=== PATIENT | female | born 1975 | race Caucasian/White ===

== ENCOUNTER 2016-10-30 08:30 | Emergency (ER) | payer MEDICAID, OTHER ==
[~2016-10-30] VITALS: Ht 172.7 cm; Wt 86.2 kg
[2016-10-30 09:20] VITALS: BP 140/96
== END 2016-10-30 09:50 | disposition home or self-care (01) ==
LOC: ER 08:35
DX: S46.211A Strain of muscle, fascia and tendon of other parts of biceps, right arm, initial encounter (principal); X50.0XXA Overexertion from strenuous movement or load, initial encounter; Y93.89 Activity, other specified; Y99.8 Other external cause status; Y92.89 Other specified places as the place of occurrence of the external cause

== ENCOUNTER 2021-02-16 09:04 | Emergency (ER) | payer BC, MEDICAID ==
[~2021-02-16] VITALS: Ht 170.2 cm; Wt 95.3 kg
[2021-02-16 09:15] VITALS: BP 115/92
[2021-02-16 10:01] LABS: Urine Bacteria NONE SEEN /hpf (None Seen); Urine Blood Negative /uL (Negative); Urine Specific Gravity 1.025 (1.001-1.035); Urine WBC 5 /hpf (0 - 5)
[2021-02-16 10:23] LABS: Basophils # (auto) 0 10 ^3/uL (0-0.2); Basophils % (auto) 0.4 % (0.0-2.0); Eosinophils # (auto) 0 10 ^3/uL (0-0.8); Eosinophils % (auto) 0.4 % (0.0-7.0); Hematocrit 47.2 % (36.0-46.0); Hemoglobin 16.2 g/dL (12.2-16.2); Mean Corpuscular Hemoglobin 32.2 pg (28.0-32.0); Mean Corpuscular Hgb Conc. 34.4 g/dL (32.0-36.0); Mean Corpuscular Volume 93.8 fL (80.0-100.0); Monocytes # (auto) 0.2 10 ^3/uL (0-1.3); Monocytes % (auto) 4.8 % (0.0-12.0); Neutrophils # (auto) 2.4 10 ^3/uL (1.6-8.6); Neutrophils % (auto) 67.4 % (37.0-80.0); Nucleated Red Blood Cells % 0.2 %; Red Blood Cells 5.03 10^6/uL (4.0-5.20); Red Cell Distribution Width 12.7 % (11.8-14.3); White Blood Cell 3.5 10^3/uL (4.4-10.8)
[2021-02-16 10:31] LABS: Albumin 3.7 g/dL (3.4-5.0); Calcium 8.6 mg/dL (8.5-10.1); Potassium 4.4 mmol/L (3.5-5.1)
[2021-02-16 10:35] LABS: BUN/Creatinine Ratio 10.3; Bilirubin, Total 0.4 mg/dL (0.2-1.0); Total Protein 7.6 g/dL (6.4-8.2)
== END 2021-02-16 13:27 | disposition left against medical advice (07) ==
LOC: ER 09:04
DX: J18.9 Pneumonia, unspecified organism (principal); Z53.29 Procedure and treatment not carried out because of patient's decision for other reasons
CPT/HCPCS: 36415; 74176; 80053; 81001; 85025

== ENCOUNTER 2024-05-04 07:23 | Emergency (ER) | payer BC, MEDICAID ==
[~2024-05-04] VITALS: Ht 170.2 cm; Wt 100.0 kg
--- NOTE | 2024-05-04 07:36 | ED.PDOC ---
GI ASSESSMENT HPI Comments 48Y F presents to ED via EMS for chief complaint left-sided abd pain x this morning. Pt describes abd pain as sharp and it is non-radiating. Pt denies chest pain, SOB, urinary symptoms, and n/v/d. LBM was this morning. Pt states pain is not related to menstrual cycle. Per EMS, BS 154 on scene. EMS states there were no episodes of syncope and no masses were felt on assessment. Pt states she drinks approximately one pint of alcohol daily and the last drink was 2-3days ago. No other symptoms reported. Chief Complaint: Abdominal Pain Time Seen by MD: 07:26 Primary Care Provider: NONE Reviewed Notes: Nurses Notes, Data Keyer Notes, Medications, Allergies Allergies: Coded Allergies: NO KNOWN ALLERGIES (Unverified , 10/21/13) Information Source: Patient, Relative (Child), Emergency Med Personnel Mode of Arrival: EMS Brought in by: EMS Timing: Hours Duration: Since onset Prehospital treatment: Accucheck Quality: Sharp Vomitus: None Stool: Normal Severity: Mild Recent: None Recent Hx of: None Pain Location: LUQ, LLQ Modifying Factors: Nothing Associated sign and symptoms: Abdominal Pain Past Medical History PAST MEDICAL HISTORY: Kidney Stones Surgical History: Denies all surgeries BLUEPRINTER History: No Pertinent BLUEPRINTER History Family History Family History: Reviewed,noncontributory to illness Social History Smoker: Non-Smoker Alcohol: Heavy Drugs: Denies Drug Use Lives In: Home Constitutional: denies: chills, diaphoresis, fatigue, fever, malaise, sweats, weakness, others EENTM: denies: blurred vision, double vision, ear bleeding, ear discharge, ear drainage, ear pain, ear ringing, eye pain, eye redness, hearing loss, mouth pain, mouth swelling, nasal discharge, nose bleeding, nose congestion, nose pain, photophobia, tearing, throat pain, throat swelling, voice changes, others Respiratory: denies: cough, hemoptysis, orthopnea, SOB at rest, shortness of breath, SOB with excertion, stridor, wheezing, others Cardiovascular: denies: chest pain, dizzy spells, diaphoresis, Dyspnea on exertion, edema, irregular heart beat, left arm pain, lightheadedness, palpitations, PND, syncope, others Gastrointestinal: reports: abdominal pain; denies: abdomen distended, blood streaked bowels, constipated, diarrhea, dysphagia, difficulty swallowing, hematemesis, melena, nausea, poor appetite, poor fluid intake, rectal bleeding, rectal pain, vomiting, others Genitourinary: denies: abnormal vagina bleeding, burning, dyspareunia, dysuria, flank pain, frequency, hematuria, incontinence, pain, , vagina discharge, urgency, others Neurological: denies: dizziness, fainting, headache, left sided numbness, left sided weakness, numbness, paresthesia, pre-existing deficit, right sided numbness, right sided weakness, seizure, speech problems, tingling, tremors, weakness, others Musculoskeletal: denies: back pain, gout, joint pain, joint swelling, muscle pain, muscle stiffness, neck pain, others Integumetry: denies: bruises, change in color, change in hair/nails, dryness, laceration, lesions, lumps, rash, wounds, others Allergic/Immunocompromised: denies: Difficulty Healing, Frequent Infections, Hives, Itching, others Hematologic/Lymphatic: denies: anemia, blood clots, easy bleeding, easy bruising, swollen glands, others Endocrine: denies: excessive hunger, excessive sweating, excessive thirst, excessive urination, flushing, intolerance to cold, intolerance to heat, unexplained weight gain, unexplained weight loss, others Psychiatric: denies: anxiety, bipolar disorder, depression, hopeless, panic disorder, schizophrenia, sleepless, suicidal, others All Other Systems: Reviewed and Negative Physical Exam General Appearance: No Apparent Distress, Normal HEENT: Normal ENT Inspection, Pharynx Normal, TMs Normal Neck: Full Range of Motion, Non-Tender, Normal, Normal Inspection Respiratory: Chest Non-Tender, Lungs Clear, No Accessory Muscle Use, No Respiratory Distress, Normal Breath Sounds Cardiovascular: No Edema, No JVD, No Murmur, No Gallop, Normal Peripheral Pulses, Regular Rate/Rhythm Breast Exam: Deferred Gastrointestinal: LLQ, LUQ, No Organomegaly, No Pulsatile Mass, Normal Bowel Sounds, Soft, Tenderness Genitalia: Deferred Pelvic: Deferred Rectal: Deferred Extremities: No calf tenderness, Normal capillary refill, Normal inspection, Normal range of motion, Non-tender, No pedal edema Musculoskeletal : Apperance: Normal Neurologic: Alert, bean weigher II-XII nml as Tested, No Motor Deficits, Normal Affect, Normal Mood, No Sensory Deficits Cerebellar Function: Normal Reflexes: Normal Skin: Dry, Normal Color, Warm Lymphatic: No Adenopathy Was a procedure done? Was a procedure done?: No GI differential Dx Differential Diagnosis: AAA, Appendicitis, Complete , Incomplete , Inevitable , Missed , Threatened , Abruptio placentae, Angina/[place], Aortic dissection, Bowel Obstruction, Cholangitis, Cholecystitis, Constipation, Diverticular disease, Dysmenorrhea, Ectopic , Esophageal rupture, Esophagitis, Gastritis/PUD, Gastroenteritis, GI hemorrhage, Hernia, Hepatitis, Inflammatory BD, Ischemic Bowel, Ovarian cyst/torsion, Pancreatitis, PID, Porphyria, Trauma intraabdominal, Urinary Obstruction, UTI, Urolithiasis, Dehydration, Diabetes/ DKA, Drug toxicity, Electrolyte Imbalance, Food Poisoning, , Bacterial, Parasitic, Viral, Hypovolemia, Impaction, Malnutrition, Renal Failure, Anemia, Esophageal Varicies, Stress Ulcer, Kidney Stone X-Ray, Labs, Meds, VS Vital Signs Date Time Temp Pulse Resp B/P (MAP) Pulse Ox O2 Delivery O2 Flow Rate FiO2 05/04/24 09:28 71 16 98 Room Air* 0 21 05/04/24 09:28 97.5 71 16 101/72 (82) 98 97.5 05/04/24 07:35 55 05/04/24 07:26 98.8 55 20 92/65 (74) 95 Lab Test 05/04/24 08:06 05/04/24 07:50 Range/Units Urine Color Dark yellow Yellow Urine Clarity Ex.turbid Clear Urine pH 6.0 5.0-9.0 Urine Specific Howard 1.030 1.001-1.035 Urine Protein 1+ H Negative Urine Ketones Negative Negative Urine Blood Negative Negative /uL Urine Nitrite Negative Negative Urine Bilirubin Negative Negative Urine Urobilinogen 8 H Negative mg/dL Urine Leukocyte Esterase Trace Negative /uL Urine RBC 10 0 - 4 /hpf Urine WBC 28 0 - 5 /hpf Urine Squamous Epithelial Cells Many <5 /hpf Urine Bacteria None seen None Seen /hpf Urine Hyaline Casts Few 0 - 2 /lpf Urine Mucus Few None Seen Urine Glucose Normal Normal mg/dL White Blood Count 7.2 4.4-10.8 10^3/uL Red Blood Count 4.53 4.0-5.20 10^6/uL Hemoglobin 14.7 12.2-16.2 g/dL Hematocrit 43.4 36.0-46.0 % Mean Corpuscular Volume 95.8 80.0-100.0 fL Mean Corpuscular Hemoglobin 32.6 H 28.0-32.0 pg Mean Corpuscular Hemoglobin Concent 34.0 32.0-36.0 g/dL Red Cell Distribution Width 13.1 11.8-14.3 % Platelet Count 282 140-450 10^3/uL Mean Platelet Volume 8.9 6.9-10.8 fL Neutrophils (%) (Auto) 64.8 37.0-80.0 % Lymphocytes (%) (Auto) 26.0 10.0-50.0 % Monocytes (%) (Auto) 5.2 0.0-12.0 % Eosinophils (%) (Auto) 3.4 0.0-7.0 % Basophils (%) (Auto) 0.6 0.0-2.0 % Neutrophils # (Auto) 4.6 1.6-8.6 10 ^3/uL Lymphocytes # (Auto) 1.9 0.4-5.4 10 ^3/uL Monocytes # (Auto) 0.4 0-1.3 10 ^3/uL Eosinophils # (Auto) 0.2 0-0.8 10 ^3/uL Basophils # (Auto) 0 0-0.2 10 ^3/uL Nucleated Red Blood Cells 0.1 % Sodium Level 137 136-145 mmol/L Potassium Level 4.1 3.5-5.1 mmol/L Chloride Level 107 98-107 mmol/L Carbon Dioxide Level 21 20-31 mmol/L Anion Gap 9 5-15 Blood Urea Nitrogen 16 9-23 mg/dL Creatinine 1.02 0.550-1.02 mg/dL Glomerular Filtration Rate Calc 67 >90 mL/min BUN/Creatinine Ratio 15.7 10.0-20.0 Serum Glucose 141 H 74-106 mg/dL Calcium Level 10.1 8.7-10.4 mg/dL Beta HCG, Quantitative 0.6 L 1.5-4.2 mIU/mL [facility] [id number] [place] [id number] Ph: [phone] DIAGNOSTIC IMAGING Diagnostic Imaging Report : [id number] Signed PATIENT: VISHNU HARGROVE ACCT: [id number] UNIT: [id number] : 1975 LOC: ER ROOM / BED: / AGE / SEX: 48 / F ADM STATUS: REG ER SERVICE 8 ORDERING PHYSICIAN: JONATHAN MURPHY MD PROCEDURE(s): ABPL - CT AB PEL WO CON-NO ORAL OR IV REASON: left abdominal pain ORDER NUMBER(s): [id number], ACCESSION NUMBER(s): [id number] Procedure: CT CT AB PEL WO CON-NO ORAL OR IV 05/04/2024 09:03 AM Indication: left abdominal pain Comparison Study: None available at time of dictation. Technique: Axial images were obtained and reformatted in coronal and sagittal planes. All CT scans at this medical facility are performed using dose modulation techniques as appropriate to a performed exam including the following: Automated exposure control was utilized; adjustment of the MA and/or KV according to patient size; and use of iterative reconstruction technique. CT Dose: CTDI volume is 25 mGy. Dose-length product is 1528 mGy*cm FINDINGS: Lower Chest: Bibasilar subsegmental atelectasis is noted. Hepatobiliary: Unremarkable. Spleen: Unremarkable. Pancreas: Unremarkable. Adrenal Glands: Unremarkable. tract: The kidneys are normal in size bilaterally without hydronephrosis or nephrolithiasis. The urinary bladder is unremarkable. GI tract: The stomach is grossly normal in appearance. No evidence of small bowel obstruction. Circumferential mural thickening of the ascending colon adjacent fat stranding compatible with colitis. There is sigmoid diverticulosis without diverticulitis. The appendix is normal. Lymphatics: No mesenteric, retroperitoneal or periportal lymphadenopathy. Vasculature: The abdominal aorta is normal in in caliber. Pelvic Organs: Unremarkable Bones/soft tissues: No acute abnormality. Degenerative changes of the lumbar spine noted. Small fat-containing umbilical hernia. Other: None. IMPRESSION: 1. Descending colitis. 2. Sigmoid diverticulosis without diverticulitis. ATED BY: CATRACHITA BOND MD DICTATED DATE/TIME: 05/04/24946 SIGNED BY: CATRACHITA BOND MD SIGNED DATE/TIME: 05/04/24946 CC: Time of 1ST Reevaluation: 07:56 Reevaluation 1ST: Unchanged Time of 2ND Reevaluation: 10:08 Reevaluation 2ND: Resolved Patient Education/Counseling: Diagnosis, Treatment, Prognosis, Need For Follow Up Family Education/Counseling: Diagnosis, Treatment, Prognosis, Need For Follow Up Additional Information I reviewed the following notes from patient's past medical encounters: [facility] ER 02/16/2021, 10/30/2016, 10/21/2013 The following tests were ordered, and results were reviewed by me: CBC, BMP, beta hcg quantitative, UA, CT abd/pelvis WO contrast Additional Information was gathered from interviewing the following independent historians: EMS and family I reviewed and agreed with the following test results read by other providers: CT abd/pelvis WO contrast I discussed treatment and results with medical personnel and family. pt reports she had a BM and is much better. i offered to admit her for hydration, and pain control for the colitis, but she declined Departure 1 Departure Time of Disposition: 10:09 Impression: Primary Impression: Abdominal pain Qualified Codes: R10.32 - Left lower quadrant pain Additional Impression: Colitis Disposition: 01 HOME / SELF CARE / HOMELESS Condition: Good e-Prescriptions Amoxicillin & Pot Clavulanate (AUGMENTIN TABLET) 875 Mg Tb 875 MG PO BID for 10 Days, #20 TAB Prov: JONATHAN MURPHY MD 05/04/24 Discharged With: Self, Relative Critical Care Note Critical Care Time?: Yes (55 min-critical care time only) Critical care comment: Due to concerns for patients condition deteriorating, since she presented with moderate to severe abdominal pain, with possible diverticulitis, bowel perforation, sbo, among other conditions to be considered, the care required my highest level of attention and readiness to intervene. I assessed the patient, reviewed the medical records, ordered the appropriate tests and treatments, then reassessed for results and responsiveness. I communicated with medical personnel and consultants and formulated a plan of care. Total critical care time excludes any procedures Stability Stability form required: No Heart Score Heart Score: Heart Score Response (Comments) Value History N/A 0 EKG N/A 0 Age N/A 0 Risk Factors N/A 0 Troponin N/A 0 Total 0 I personally scribed for JONATHAN MURPHY MD ([email or web address]) on 05/04/24 at 07:36. Electronically submitted by Viry Parra ([facility]). I personally scribed for JONATHAN MURPHY MD ([facility]) on 05/04/24 at 09:52. Electronically submitted by Viry Parra ([facility]). JONATHAN MURPHY MD May 04, 2024 07:36
--- NOTE | 2024-05-04 08:13 | ECG ---
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
[2024-05-04 08:22] LABS: Basophils # (auto) 0 10 ^3/uL (0-0.2); Basophils % (auto) 0.6 % (0.0-2.0); Eosinophils # (auto) 0.2 10 ^3/uL (0-0.8); Eosinophils % (auto) 3.4 % (0.0-7.0); Hematocrit 43.4 % (36.0-46.0); Hemoglobin 14.7 g/dL (12.2-16.2); Lymphocytes # (auto) 1.9 10 ^3/uL (0.4-5.4); Mean Corpuscular Hemoglobin 32.6 pg (28.0-32.0); Mean Corpuscular Volume 95.8 fL (80.0-100.0); Monocytes # (auto) 0.4 10 ^3/uL (0-1.3); Monocytes % (auto) 5.2 % (0.0-12.0); Neutrophils # (auto) 4.6 10 ^3/uL (1.6-8.6); Neutrophils % (auto) 64.8 % (37.0-80.0); Nucleated Red Blood Cells % 0.1 %; Platelet Count (auto) 282 10^3/uL (140-450); Red Blood Cells 4.53 10^6/uL (4.0-5.20); Red Cell Distribution Width 13.1 % (11.8-14.3); White Blood Cell 7.2 10^3/uL (4.4-10.8)
[2024-05-04 08:37] LABS: Chloride 107 mmol/L (98-107); Potassium 4.1 mmol/L (3.5-5.1); Sodium 137 mmol/L (136-145)
[2024-05-04 08:38] LABS: Anion Gap 9 (5-15); Carbon Dioxide 21 mmol/L (20-31)
[2024-05-04 08:39] LABS: Calcium 10.1 mg/dL (8.7-10.4)
[2024-05-04 08:44] LABS: BUN/Creatinine Ratio 15.7 (10.0-20.0); Blood Urea Nitrogen 16 mg/dL (9-23)
[2024-05-04 09:04] LABS: Glucose 141 mg/dL (74-106)
[2024-05-04 09:28] VITALS: PULSE 71; RESP 16; O2SAT 98
[2024-05-04 09:29] LABS: Urine Bacteria None Seen /hpf (None Seen)
[2024-05-04 09:34] LABS: Urine Blood Negative /uL (Negative); Urine Clarity Ex.Turbid (Clear); Urine Hyaline Cast FEW /lpf (0 - 2); Urine Mucus FEW (None Seen); Urine Protein, UAD 1+ (Negative); Urine Squamous Epithelial Cell MANY /hpf (<5); Urine Urobilinogen 8 mg/dL (Negative); Urine WBC 28 /hpf (0 - 5)
[2024-05-04 09:35] LABS: Urine Color DARK YELLOW (Yellow)
--- NOTE | 2024-05-04 09:49 | DVH ---
Procedure: CT CT AB PEL WO CON-NO ORAL OR IV 05/04/2024 09:03 AM Indication: left abdominal pain Comparison Study: None available at time of dictation. Technique: Axial images were obtained and reformatted in coronal and sagittal planes. All CT scans at this medical facility are performed using dose modulation techniques as appropriate t o a performed exam including the following: Automated exposure control was utilized; adjustment of th e MA and/or KV according to patient size; and use of iterative reconstruction technique. CT Dose: CTDI volume is 25 mGy. Dose-length product is 1528 mGy*cm FINDINGS: Lower Chest: Bibasilar subsegmental atelectasis is noted. Hepatobiliary: Unremarkable. Spleen: Unremarkable. Pancreas: Unremarkable. Adrenal Glands: Unremarkable. tract: The kidneys are normal in size bilaterally without hydronephrosis or nephrolithiasis. The urinary bladder is unremarkable. GI tract: The stomach is grossly normal in appearance. No evidence of small bowel obstruction. Circum ferential mural thickening of the ascending colon adjacent fat stranding compatible with colitis. The re is sigmoid diverticulosis without diverticulitis. The appendix is normal. Lymphatics: No mesenteric, retroperitoneal or periportal lymphadenopathy. Vasculature: The abdominal aorta is normal in in caliber. Pelvic Organs: Unremarkable Bones/soft tissues: No acute abnormality. Degenerative changes of the lumbar spine noted. Small fat-c ontaining umbilical hernia. Other: None. IMPRESSION: 1. Descending colitis. 2. Sigmoid diverticulosis without diverticulitis.
[2024-05-04] MEDS ORDERED: AUG875T PO (10:12)
[2024-05-04 10:28] VITALS: BP 113/76; PULSE 79; RESP 18; TEMP 97.8; O2SAT 95
== END 2024-05-04 10:36 | disposition home or self-care (01) ==
LOC: EDBD 07:23 → ER 07:23
DX: K52.9 Noninfective gastroenteritis and colitis, unspecified (principal)
CPT/HCPCS: 36415; 74176; 80048; 81001; 84702; 85025; 93005

== ENCOUNTER 2024-11-05 00:24 | Inpatient (IN) | payer MEDICAID ==
[~2024-11-05] VITALS: Ht 167.6 cm; Wt 90.7 kg
[~2024-11-05 00:24] MED LIST: AUG875T PO
[2024-11-05 01:04] LABS: Hematocrit 46.6 % (36.0-46.0); Hemoglobin 16.1 g/dL (12.2-16.2); Mean Corpuscular Hemoglobin 31.7 pg (28.0-32.0); Mean Corpuscular Volume 91.8 fL (80.0-100.0); Nucleated Red Blood Cells % 0.0 %
[2024-11-05 01:07] LABS: Potassium 3.7 mmol/L (3.5-5.1); Sodium 141 mmol/L (136-145)
[2024-11-05 01:08] LABS: Anion Gap 8 (5-15); Carbon Dioxide 24 mmol/L (20-31)
--- NOTE | 2024-11-05 01:08 | DVH ---
CHEST RADIOGRAPH Indication: syncope Technique: Single frontal view of the chest was obtained COMPARISON: None FINDINGS: Lines and Tubes: None Lungs: Clear Pleura: No effusion. No pneumothorax. Cardiomediastinal contours: Unremarkable Bones: Unremarkable IMPRESSION: 1. No acute disease.
[2024-11-05 01:13] LABS: BUN/Creatinine Ratio 13.1 (10.0-20.0); Blood Urea Nitrogen 14 mg/dL (9-23); Calcium 8.3 mg/dL (8.7-10.4); Chloride 109 mmol/L (98-107); Glucose 131 mg/dL (74-106)
--- NOTE | 2024-11-05 01:17 | DVH ---
EXAM: CT HEAD WITHOUT CONTRAST INDICATION: syncope TECHNIQUE: CT of the head without intravenous contrast. Radiation Dose : 1. Head: CT Dose: CTDI volume is 56.79 mGy. Dose-length product is 1022.25 mGy*cm The dose indicators for CT are the volume Computed Tomography (CT) Dose Index (CTDIvol) and the Dose Length Product (DLP), and are measured in units of mGy and mGy-cm, respectively. These indicators are not patient dose, but values generated from the CT scanner acquisition factors. The report includes radiation exposure data for exposures received during this examination. COMPARISON: None FINDINGS: There is no evidence of acute intracranial hemorrhage, extra-axial collection, mass effect, midline s hift, herniation or hydrocephalus. The ventricles, sulci and cisterns are age appropriate. The salgado-white differentiation is intact. Bilateral maxillary mucosal sinus disease. The remaining visualized paranasal sinuses and mastoid ai r cells are clear. The surrounding soft tissues and osseous structures are unremarkable. IMPRESSION: 1. No acute intracranial abnormality. Radiation optimization: All CT scans at this facility use at least one of these dose optimization luigi hniques: automated exposure control mA and/or kV adjustment per patient size (includes targeted exam s where dose is matched to clinical indication) or iterative reconstruction.
--- NOTE | 2024-11-05 01:40 | ED.PDOC ---
History of Present Illness HPI Comments 49 y/o F is BIBA from private residence for c/c syncope. Per EMS report, patient had a syncopal episode, that was witness by son, after returning from brushing her teeth in her bathroom, this morning. Patient reports on feeling dizziness and lightheadedness in the bathroom and walking to her hallway in front of her son's bedroom prior to event. Son of patient reported to EMS on finding patient on the floor unresponsive and with a blank stare that lasted 2x minutes in duration before coming to. Patient was noted to have had a GCS14 and presented confused, pale, warm to touch, and diaphoretic. No signs of trauma or incontinence. Vitals were stated to have been stable and within normal limits, with a blood glucose of 129. Patient also endorsed on donating plasma, yesterday, and having heavier than usual menstrual bleeding, lately, in addition to having a similar syncopal episode when she was on a carnivore diet 3-4x months ago. No further acute symptoms reported. 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 Past Medical History PAST MEDICAL HISTORY: Kidney Stones, UTI'S Surgical History: Denies all surgeries SALESPERSON TOY TRAINS AND ACCESSORIES History: No Pertinent SALESPERSON TOY TRAINS AND ACCESSORIES History Family History Family History: Reviewed,noncontributory to illness Social History Smoker: Non-Smoker Alcohol: Heavy Drugs: Denies Drug Use Lives In: Home All Other Systems: Reviewed and Negative (Comprehensive systems review obtained and negative except for what is stated in the HPI.) Physical Exam General Appearance: No Apparent Distress, Obese HEENT: Normal ENT Inspection, Pharynx Normal, TMs Normal Neck: Full Range of Motion, Non-Tender, Normal, Normal Inspection Respiratory: Chest Non-Tender, Lungs Clear, No Accessory Muscle Use, No Respiratory Distress, Normal Breath Sounds Cardiovascular: No Edema, No JVD, No Murmur, No Gallop, Normal Peripheral Pulses, Regular Rate/Rhythm Breast Exam: Deferred Gastrointestinal: No Organomegaly, Non Tender, No Pulsatile Mass, Normal Bowel Sounds, Soft Genitalia: Deferred Pelvic: Deferred Rectal: Deferred Extremities: No calf tenderness, Normal capillary refill, Normal inspection, Normal range of motion, Non-tender, No pedal edema Musculoskeletal : Apperance: Normal Neurologic: Alert, bridge builder II-XII nml as Tested, No Motor Deficits, Normal Affect, Normal Mood, No Sensory Deficits Cerebellar Function: Normal Reflexes: Normal Skin: Dry, Normal Color, Warm Lymphatic: No Adenopathy Was a procedure done? Was a procedure done?: No EKG EKG : Pulse Rate (adult): 73 [place]: Normal Cardiac Rhythm: NSR Block: None Hypertrophy: None ST: Normal Differential Dx Considerations may include: vasovagal response, dehydration, electrolyte imbalance, anemia, menorrhagia, closed head injury, intracranial bleed, UTI, among others X-Ray, Labs, Meds, VS Vital Signs Date Time Temp Pulse Resp B/P (MAP) Pulse Ox O2 Delivery O2 Flow Rate FiO2 11/05/24 01:40 73 11/05/24 00:46 98.0 76 18 104/80 (88) 96 98.0 11/05/24 00:28 73 Lab Test 11/05/24 01:38 11/05/24 00:47 Range/Units Troponin I High Sensitivity 5 4 </=34 ng/L White Blood Count 9.2 4.4-10.8 10^3/uL Red Blood Count 5.07 4.0-5.20 10^6/uL Hemoglobin 16.1 12.2-16.2 g/dL Hematocrit 46.6 H 36.0-46.0 % Mean Corpuscular Volume 91.8 80.0-100.0 fL Mean Corpuscular Hemoglobin 31.7 28.0-32.0 pg Mean Corpuscular Hemoglobin Concent 34.6 32.0-36.0 g/dL Red Cell Distribution Width 13.0 11.8-14.3 % Platelet Count 308 140-450 10^3/uL Mean Platelet Volume 8.7 6.9-10.8 fL Neutrophils (%) (Auto) 65.9 37.0-80.0 % Lymphocytes (%) (Auto) 24.7 10.0-50.0 % Monocytes (%) (Auto) 4.8 0.0-12.0 % Eosinophils (%) (Auto) 3.7 0.0-7.0 % Basophils (%) (Auto) 0.9 0.0-2.0 % Neutrophils # (Auto) 6.0 1.6-8.6 10 ^3/uL Lymphocytes # (Auto) 2.3 0.4-5.4 10 ^3/uL Monocytes # (Auto) 0.4 0-1.3 10 ^3/uL Eosinophils # (Auto) 0.3 0-0.8 10 ^3/uL Basophils # (Auto) 0.1 0-0.2 10 ^3/uL Nucleated Red Blood Cells 0.0 % Sodium Level 141 136-145 mmol/L Potassium Level 3.7 3.5-5.1 mmol/L Chloride Level 109 H 98-107 mmol/L Carbon Dioxide Level 24 20-31 mmol/L Anion Gap 8 5-15 Blood Urea Nitrogen 14 9-23 mg/dL Creatinine 1.07 H 0.550-1.02 mg/dL Glomerular Filtration Rate Calc 63 >90 mL/min BUN/Creatinine Ratio 13.1 10.0-20.0 Serum Glucose 131 H 74-106 mg/dL Calcium Level 8.3 L 8.7-10.4 mg/dL [place] [id number] Ph: [phone] DIAGNOSTIC IMAGING Diagnostic Imaging Report : [id number] Signed PATIENT: VISHNU HARGROVE ACCT: [id number] UNIT: [id number] : 1975 LOC: ER ROOM / BED: / AGE / SEX: 49 / F ADM STATUS: REG ER SERVICE [id number] ORDERING PHYSICIAN: NORAH JIMENEZ MD PROCEDURE(s): HWOCT - HEAD WITHOUT CONTRAST REASON: syncope ORDER NUMBER(s): [id number], ACCESSION NUMBER(s): [id number] EXAM: CT HEAD WITHOUT CONTRAST INDICATION: syncope TECHNIQUE: CT of the head without intravenous contrast. Radiation Dose : 1. Head: CT Dose: CTDI volume is 56.79 mGy. Dose-length product is 1022.25 mGy*cm The dose indicators for CT are the volume Computed Tomography (CT) Dose Index (CTDIvol) and the Dose Length Product (DLP), and are measured in units of mGy and mGy-cm, respectively. These indicators are not patient dose, but values generated from the CT scanner acquisition factors. The report includes radiation exposure data for exposures received during this examination. COMPARISON: None FINDINGS: There is no evidence of acute intracranial hemorrhage, extra-axial collection, mass effect, midline shift, herniation or hydrocephalus. The ventricles, sulci and cisterns are age appropriate. The salgado-white differentiation is intact. Bilateral maxillary mucosal sinus disease. The remaining visualized paranasal sinuses and mastoid air cells are clear. The surrounding soft tissues and osseous structures are unremarkable. IMPRESSION: 1. No acute intracranial abnormality. Radiation optimization: All CT scans at this facility use at least one of these dose optimization techniques: automated exposure control mA and/or kV adjustment per patient size (includes targeted exams where dose is matched to clinical indication) or iterative reconstruction. ATED BY: MADHU KINNEY MD DICTATED DATE/TIME: 11/05/24113 SIGNED BY: MADHU KINNEY MD SIGNED DATE/TIME: 11/05/24113 CC: [place] [id number] Ph: [phone] DIAGNOSTIC IMAGING Diagnostic Imaging Report : [id number] Signed PATIENT: VISHNU HARGROVE ACCT: [id number] UNIT: [id number] : 1975 LOC: ER ROOM / BED: / AGE / SEX: 49 / F ADM STATUS: REG ER SERVICE ORDERING PHYSICIAN: NORAH JIMENEZ MD PROCEDURE(s): CXRP - CHEST PORTABLE REASON: syncope ORDER NUMBER(s): [id number], ACCESSION NUMBER(s): [id number] CHEST RADIOGRAPH Indication: syncope Technique: Single frontal view of the chest was obtained COMPARISON: None FINDINGS: Lines and Tubes: None Lungs: Clear Pleura: No effusion. No pneumothorax. Cardiomediastinal contours: Unremarkable Bones: Unremarkable IMPRESSION: 1. No acute disease. ATED BY: MADHU KINNEY MD DICTATED DATE/TIME: 11/05/24104 SIGNED BY: MADHU KINNEY MD SIGNED DATE/TIME: 11/05/24104 CC: Time of 1ST Reevaluation: 01:00 Reevaluation 1ST: Unchanged Patient Education/Counseling: Diagnosis, Treatment Family Education/Counseling: No Family Present Additional Information Previous visits reviewed: May 04, 2024 encounter for abdominal pain The following tests were ordered, and results were reviewed by me: CT head w/o contrast, CXR, CBC, BMP, EKG, UA, troponin Additional Information was gathered from interviewing the following independent historians: EMS I reviewed and agreed with the following test results read by other providers: CT head w/o contrast, CXR I discussed treatment and results with medical personnel and: patient SEPSIS Sepsis Screen Date sepsis recognized/suspect: Nov 05, 2024 Time Sepsis recognized/suspect: 48 Recent Procedure: No On Antibiotic Therapy: No Respiratory Rate >20: No Heart Rate >90: No Temp<36 C (96.8 F) or >38.3 C: No SBP <90 or MAP <65 mmHG: No New Acute Mental Status Change: No Is the patient on CPAP, BIPAP,: No Physician Orders Chest Portable (11/05/24 00:34) Head Without Contrast (11/05/24 00:34) Electrocardigram (11/05/24 00:34) Electrocardigram (11/05/24 01:34) Electrocardigram (11/05/24 03:34) Vital Signs Date Time Temp Pulse Resp B/P (MAP) Pulse Ox O2 Delivery O2 Flow Rate FiO2 11/05/24 01:40 73 11/05/24 00:46 98.0 76 18 104/80 (88) 96 98.0 11/05/24 00:28 73 Laboratory Tests Test 11/05/24 00:47 White Blood Count 9.2 10^3/uL (4.4-10.8) Departure 1 Departure Time of Disposition: 05:48 (Patient presented with syncope today and should be admitted. Data: 1. I ordered and reviewed the result of at least 3 labs including a CBC, BMP, and troponin. 2. I independently interpreted the following tests: EKG which shows a sinus arrhythmia and a chest x-ray which shows benign chest and a CT head which shows benign brain.Risk:This patient has a high risk of morbidity due to further diagnostic testing or treatment and may suffer from an acute cardiac, neurologic, or infectious disorder. Rationale: Patient should be admitted to the hospital for further management.) Impression: Primary Impression: Syncope and collapse Disposition: ADMITTED INPATIENT Admit to: Med Surg Condition: Serious e-Prescriptions No Active Prescriptions or Reported Meds Critical Care Note Critical Care Time?: Yes Critical care comment: Syncope and collapse Authorized and Performed by: Norah Jimenez MD Total critical care time: Approximately 39 minutes Due to a high probability of clinically significant, life threatening deterioration, the patient required my highest level of preparedness to intervene emergently and I personally spent this critical care time directly and personally managing the patient. This critical care time included obtaining a history; examining the patient; pulse oximetry; ordering and review of studies; arranging urgent treatment with development of a management plan; evaluation of patient's response to treatment; frequent reassessment; and, discussions with other providers. This critical care time was performed to assess and manage the high probability of imminent, life-threatening deterioration that could result in multi-organ failure. It was exclusive of separately billable procedures and treating other patients and teaching time. Please see my other sections and the rest of the note for further information on patient assessment and treatment. Stability Stability form required: No Heart Score Heart Score: Heart Score Response (Comments) Value History Moderate Suspicious 1 EKG Normal 0 Age 45-64 1 Risk Factors No known risk factors 0 Troponin Normal limit 0 Total 2 I personally scribed for NORAH JIMENEZ MD ([email or web address]) on 11/05/24 at 01:40. Electronically submitted by Jose Alfredo Boothe ([email or web address]). I personally scribed for NORAH JIMENEZ MD ([email or web address]) on 11/05/24 at 01:52. Electronically submitted by Jose Alfredo Boothe ([email or web address]). I personally scribed for NORAH JIMENEZ MD ([email or web address]) on 11/05/24 at 02:56. Electronically submitted by Jose Alfredo Boothe ([email or web address]). NORAH JIMENEZ MD Nov 05, 2024 01:40
[2024-11-05] MEDS ORDERED: NITROGLYCERIN 0.4 MG SL TAB SL PRN (03:30)
[2024-11-05] MEDS ORDERED: MORPHINE SULFATE INJ 2 MG/ml SYRG IV PRN (03:30)
--- NOTE | 2024-11-05 03:55 | DVHHP2 ---
History of Present Illness History of Present Illness This is a 49-year-old female with past medical history of Renal stone unknown site, UTI came to ER with history of syncopal episode around 11:30 p.m. As per patient, before going to bed she just completed brushing her teeth and walking on the hallway towards her room and suddenly feeling lightheadedness, sweaty, tingling sensation whole-body, nausea, visual changes after that she was sitting down on the floor and unable to recall anything. In ER, patient's son on bedside, stated his mother suddenly and slowly sitting down on the floor and passed out. Approximately 3-5 minutes later,she regain consciousness and able to recognize everyone. Son did not observed any shaking movement or seizure-like activity. Patient denies involuntary bowel/bladder control, hitting her head, chest pain, dyspnea, palpitation, tongue bite, no focal weakness any part of the body. She had similar episode 3 months earlier there is no triggering factor noted previously. Patient donates plasma today at evening time. She also mentioned she had heavy menstrual flow completed recently. No recent onset of new medication or dietary changes, no missed meal before the incidence happened. No history of recent any sick contact, injury, trauma, MVA. Patient currently denies any headache, vertigo, SOB, cough, constipation, dysuria, fever, abdominal pain. PAST MEDICAL HISTORY: Syncope x 3 months back, Renal stone, UTI Surgical History: Denies all surgeries PUBLISHING EDITOR History: No Pertinent PUBLISHING EDITOR History Family History: Father having history of CAD Social History Smoker: No cigarette smoking, vaping smoking daily Alcohol: Occasionally Drugs: Denies Drug Use Lives In: Home Allergy: No known allergy PCP: Not selected Review of Systems Constitutional: Yes: Sweats; No: Fever, Chills, Weakness, Malaise, Other Eyes: Other (Floating on vision for few seconds); No: Pain, Vision change, Conjunctivae inflammation, Eyelid inflammation, Redness ENT: No: Ear pain, Ear discharge, Nose pain, Nose discharge, Nose congestion, Mouth pain, Mouth swelling, Throat pain, Throat swelling, Other Respiratory: No: Cough, Dry, Shortness of breath, SOB with excertion, Wheezing, Hemoptysis, Pleuritic Pain, Sputum, Wheezing, Other Cardiovascular: Palpitations, Other (Mild edema bilateral legs); No: Chest Pain, Orthopnea, Paroxysmal Noc. Dyspnea, Edema, Lt Headedness Gastrointestinal: Nausea; No: Vomiting, Abdominal Pain, Diarrhea, Constipation, Melena, Hematochezia, Other Genitourinary: No Dysuria, No Frequency, No Incontinence, No Hematuria, No Retention, No Other Musculoskeletal: No: other, neck pain, shoulder pain, arm pain, back pain, hand pain, leg pain, foot pain Neurological: Other (Lightheadedness) Allergies: Coded Allergies: NO KNOWN ALLERGIES (Unverified , 10/21/13) Exam Vital Signs Vital Signs Date Time Temp Pulse Resp B/P (MAP) Pulse Ox O2 Delivery O2 Flow Rate FiO2 11/05/24 01:40 73 11/05/24 00:46 98.0 18 104/80 (88) 96 98.0 General Appearance: Alert, Oriented X3, Cooperative, No acute distress HEENT: Atraumatic, PERRLA, EOMI Respiratory: Clear to auscultation, Normal air movement Cardiovascular: Regular rate, Normal S1, Normal S2 Abdominal: Normal bowel sounds, Soft, No tenderness, No hepatospenomegaly Extremities: No clubbing, No cyanosis, Normal pulses, Other (Mild edema bilateral legs) Skin: No rashes, No breakdown, No significant lesion Neuro: Normal gait, Normal speech, Strength at 5/5 X4 ext, Normal tone Labs/Xrays Labs Test 11/05/24 01:38 11/05/24 00:47 Range/Units Troponin I High Sensitivity 5 </=34 ng/L White Blood Count 9.2 4.4-10.8 10^3/uL Red Blood Count 5.07 4.0-5.20 10^6/uL Hemoglobin 16.1 12.2-16.2 g/dL Hematocrit 46.6 H 36.0-46.0 % Mean Corpuscular Volume 91.8 80.0-100.0 fL Mean Corpuscular Hemoglobin 31.7 28.0-32.0 pg Mean Corpuscular Hemoglobin Concent 34.6 32.0-36.0 g/dL Red Cell Distribution Width 13.0 11.8-14.3 % Platelet Count 308 140-450 10^3/uL Mean Platelet Volume 8.7 6.9-10.8 fL Neutrophils (%) (Auto) 65.9 37.0-80.0 % Lymphocytes (%) (Auto) 24.7 10.0-50.0 % Monocytes (%) (Auto) 4.8 0.0-12.0 % Eosinophils (%) (Auto) 3.7 0.0-7.0 % Basophils (%) (Auto) 0.9 0.0-2.0 % Neutrophils # (Auto) 6.0 1.6-8.6 10 ^3/uL Lymphocytes # (Auto) 2.3 0.4-5.4 10 ^3/uL Monocytes # (Auto) 0.4 0-1.3 10 ^3/uL Eosinophils # (Auto) 0.3 0-0.8 10 ^3/uL Basophils # (Auto) 0.1 0-0.2 10 ^3/uL Nucleated Red Blood Cells 0.0 % Sodium Level 141 136-145 mmol/L Potassium Level 3.7 3.5-5.1 mmol/L Chloride Level 109 H 98-107 mmol/L Carbon Dioxide Level 24 20-31 mmol/L Anion Gap 8 5-15 Blood Urea Nitrogen 14 9-23 mg/dL Creatinine 1.07 H 0.550-1.02 mg/dL Glomerular Filtration Rate Calc 63 >90 mL/min BUN/Creatinine Ratio 13.1 10.0-20.0 Serum Glucose 131 H 74-106 mg/dL Calcium Level 8.3 L 8.7-10.4 mg/dL SEPSIS Sepsis Screen Date sepsis recognized/suspect: Nov 05, 2024 Time Sepsis recognized/suspect: 004 Recent Procedure: No On Antibiotic Therapy: No Respiratory Rate >20: No Heart Rate >90: No Temp<36 C (96.8 F) or >38.3 C: No SBP <90 or MAP <65 mmHG: No New Acute Mental Status Change: No Is the patient on CPAP, BIPAP,: No Physician Orders Urinalysis (11/05/24 00:34) Chest Portable (11/05/24 00:34) Head Without Contrast (11/05/24 00:34) Electrocardigram (11/05/24 00:34) Troponin-I Hs (11/05/24 03:34) Electrocardigram (11/05/24 01:34) Electrocardigram (11/05/24 03:34) Admit (11/05/24 03:23) Nitroglycerin Sublingual (Ntrostat Subli (11/05/24 03:30) Morphine Sulfate Injection (11/05/24 03:30) Notify Md Of Changes From Base (11/05/24 03:23) Semiconductors Wafer Breaker For 24 Hours (11/05/24 03:23) Emergency Dysrhythmia Protocol (11/05/24 03:23) Rhythm Strips Once Every Shift (11/05/24 03:23) Regular Diet (11/05/24 Breakfast) Pantoprazole Tablet (Protonix Tablet) (11/05/24 06:00) Vital Signs Date Time Temp Pulse Resp B/P (MAP) Pulse Ox O2 Delivery O2 Flow Rate FiO2 11/05/24 01:40 73 11/05/24 00:46 98.0 76 18 104/80 (88) 96 98.0 11/05/24 00:28 73 Laboratory Tests Test 11/05/24 00:47 White Blood Count 9.2 10^3/uL (4.4-10.8) Assessment/Plan Assessment/Plan # Syncope likely cardiogenic VS neurogenic VS orthostatic hypotension -Patient came with symptoms of syncope -History of syncopal episode 3 months ago -CT HEAD WITHOUT CONTRAST: There is no evidence of acute intracranial hemorrhage, extra-axial collection, mass effect, midline shift, herniation or hydrocephalus. -CXR- no acute cardiopulmonary disease -NIHSS score -0 -EKG: Sinus rhythm, heart rate 73, QTC 454. -UA, U tox -Echocardiogram -CAROTID DOPPLER -Fall precaution -Magnesium, HBA1C, TSH, vitamin B12 level -Orthostatic vital -Telemonitor -NEUROLOGY CONSULT as per a.m. team # OBESITY, BMI 32.3 -Lifestyle modification -LIPID PROFILE DIET: Regular GI prophylaxis: Pantoprazole 40 mg p.o. daily DVT prophylaxis: Patient ambulating Goals of care discussions, more than 29 minute spent with patient, full code status. Case discussed with Dr. Bailey Plan discussed with: Patient, Other (Nurse) My Orders Orders - DMITRI TAVERAS RESIDENT Procedure Category Date Status Time Admit ADMIT 11/05/24 Verified 03:23 Nitroglycerin PHA 11/05/24 Verified Sublingual (Ntrostat 03:30 Morphine Sulfate PHA 11/05/24 Verified Injection 03:30 Notify Of Changes DUANE 11/05/24 Verified From Base 03:23 Semiconductors Wafer Breaker For DUANE 11/05/24 Verified 24 Hours 03:23 Emergency Dysrhythmia DUANE 11/05/24 Verified Protocol 03:23 Rhythm Strips Once DUANE 11/05/24 Verified Every Shift 03:23 Regular Diet DIET 11/05/24 Verified Breakfast Pantoprazole Tablet PHA 11/05/24 Verified (Protonix Tablet) 06:00 Date of Service: Nov 05, 2024 Billing Provider: JOSE GUADALUPE BAILEY MD Common Visit Codes: 26691-[id number] INP/OBS CARE (HIGH) Secondary Visit Codes: [id number] CARE PLAN 30 MINUTES DMITRI TAVERAS RESIDENT Nov 05, 2024 03:55
[2024-11-05] MEDS: PANTOPRAZOLE 40 MG TAB PO SCH (05:11)
[2024-11-05 05:37] LABS: Urine Protein, UAD Negative (Negative)
[2024-11-05 06:25] LABS: Magnesium 2.0 mg/dL (1.6-2.6); Triglycerides 303.0 mg/dL (< 150)
[2024-11-05 06:28] LABS: Cholesterol 205.0 mg/dL (< 200); HDL Cholesterol 37.0 mg/dL (40-59)
--- NOTE | 2024-11-05 06:47 | ECG ---
[facility] Test Date: 2024-11-05 Test Time: 00:28:10 Pat Name: VISHNU HARGROVE Department: ED Room: [address] [place] [address] Gender: F Sock Drier: [place] : 1975 Requested By: NORAH JIMENEZ Order Number: [id number] Reading MD: Dheeraj Weaver Measurements Intervals [place] Rate: 73 P: 21 [place]: 174 QRS: -23 QRSD: 98 T: 87 QT: 412 QTc: 454 Interpretive Statements Sinus rhythm RSR' in V1 or V2, right VCD or RVH Probable LVH with secondary repol abnrm Electronically Signed On 11-06-2024 16:59:35 PDT by Dheeraj Weaver Please click the below link to view image of tracing.
[2024-11-05 09:41] VITALS: BP 151/85; PULSE 82; RESP 18; TEMP 98; O2SAT 98
[2024-11-05 10:02] LABS: Amphetamine Screen, Urine Neg (NEGATIVE)
[2024-11-05 10:03] LABS: Barbiturate Scree,Urine Neg (NEGATIVE); Benzodiazephine Screen, Urine Neg (NEGATIVE); Cannabinoid Screen, Urine Neg (NEGATIVE); Cocaine Screen, Urine Neg (NEGATIVE); Opiate Scree,Urine Neg (NEGATIVE); Phencyclidine Screen, Urine Neg (NEGATIVE)
[2024-11-05 10:15] LABS: Free T4 (Free Thyroxine) 0.78 ng/dL (0.89-1.76)
[2024-11-05] MEDS: CYANOCOBALAMIN (B-12) 1000 MCG/1 ML VIAL IM ONE (10:30)
--- NOTE | 2024-11-05 10:47 | DVH ---
Carotid Duplex Date: 11/05/2024 08:42 AM Clinical History: SYNCOPE Comparison: None Technique: Duplex Doppler evaluation of the extracranial carotid and vertebral arteries including col or Doppler and spectral/pulsed waveform analysis was performed. Findings: RIGHT SIDE: The peak systolic velocities are 65 cm/s in the distal CCA and 76 cm/s in the proximal ICA.The ICA/CC A ratio is less than 2. The external carotid artery is patent with peak systolic velocity of 65 cm/s proximally. There is appropriate antegrade flow in the right vertebral artery. LEFT SIDE: The peak systolic velocities are 65 cm/s in the distal CCA and 118 cm/s in the proximal ICA.. The ICA /CCA ratio is less than 2. The external carotid artery is patent with peak systolic velocity of 79 cm/s proximally. There is appropriate antegrade flow in the left vertebral artery. IMPRESSION: No hemodynamically significant stenosis noted in the right carotid system. No hemodynamically significant stenosis noted in the left carotid system. Reference: Radiology 2003; 229:340-346
[2024-11-05 11:47] VITALS: BP_SYST 125; BP_SYST 131; BP_DIAS 68; BP_DIAS 80; BP_DIAS 81; PULSE 80; PULSE 82; PULSE 85; RESP 16; TEMP 98; O2SAT 96
--- NOTE | 2024-11-05 15:23 | DVHDSRES ---
Discharge Summary Date of Admission Resident Creating Document: DULCE MARIA FISH RESIDENT Nov 05, 2024 at 03:23 Date of Discharge: Nov 05, 2024 Admitting Diagnosis syncope Labs/Diagnostic Data: Laboratory Results Test 11/05/24 05:45 11/05/24 05:38 11/05/24 04:30 11/05/24 04:09 Thyroid Stimulating Hormone (TSH) 11.12 uIU/mL (0.55-4.78) Hemoglobin A1c 5.3 % A1C (<5.7) Magnesium Level 2.0 mg/dL (1.6-2.6) B-Type Natriuretic Peptide 18.40 pg/mL (0-100) Triglycerides Level 303 mg/dL (< 150) Cholesterol Level 205 mg/dL (< 200) LDL Cholesterol 147 mg/dL (< 100) HDL Cholesterol 37 mg/dL (40-59) Vitamin B12 Level 204 pg/mL (211-911) Free Thyroxine (T4) Calculated 0.78 ng/dL (0.89-1.76) Total Triiodothyronine (TT3) 1.39 ng/mL (0.60-1.81) Urine Color Yellow (Yellow) Urine Clarity Turbid (Clear) Urine pH 5.5 (5.0-9.0) Urine Specific [place] 1.029 (1.001-1.035) Urine Protein Negative (Negative) Urine Ketones Negative (Negative) Urine Blood Negative /uL (Negative) Urine Nitrite Negative (Negative) Urine Bilirubin Negative (Negative) Urine Urobilinogen Normal mg/dL (Negative) Urine Leukocyte Esterase Trace /uL (Negative) Urine RBC None seen /hpf (0 - 4) Urine Microscopic WBC 8 /HPF (0-5) Urine Squamous Epithelial Cells Few /hpf (<5) Urine Bacteria None seen /hpf (None Seen) Urine Mucus Few (None Seen) Urine Glucose Normal mg/dL (Normal) Urine Opiates Screen Neg (NEGATIVE) Urine Fentanyl Screen Neg (NEGATIVE) Urine Barbiturates Screen Neg (NEGATIVE) Urine Phencyclidine Screen Neg (NEGATIVE) Urine Amphetamines Screen Neg (NEGATIVE) Urine Benzodiazepines Screen Neg (NEGATIVE) Urine Cocaine Screen Neg (NEGATIVE) Urine Cannabinoids Screen Neg (NEGATIVE) Troponin I High Sensitivity 5 ng/L (</=34) Test 11/05/24 00:47 White Blood Count 9.2 10^3/uL (4.4-10.8) Red Blood Count 5.07 10^6/uL (4.0-5.20) Hemoglobin 16.1 g/dL (12.2-16.2) Hematocrit 46.6 % (36.0-46.0) Mean Corpuscular Volume 91.8 fL (80.0-100.0) Mean Corpuscular Hemoglobin 31.7 pg (28.0-32.0) Mean Corpuscular Hemoglobin Concent 34.6 g/dL (32.0-36.0) Red Cell Distribution Width 13.0 % (11.8-14.3) Platelet Count 308 10^3/uL (140-450) Mean Platelet Volume 8.7 fL (6.9-10.8) Neutrophils (%) (Auto) 65.9 % (37.0-80.0) Lymphocytes (%) (Auto) 24.7 % (10.0-50.0) Monocytes (%) (Auto) 4.8 % (0.0-12.0) Eosinophils (%) (Auto) 3.7 % (0.0-7.0) Basophils (%) (Auto) 0.9 % (0.0-2.0) Neutrophils # (Auto) 6.0 10 ^3/uL (1.6-8.6) Lymphocytes # (Auto) 2.3 10 ^3/uL (0.4-5.4) Monocytes # (Auto) 0.4 10 ^3/uL (0-1.3) Eosinophils # (Auto) 0.3 10 ^3/uL (0-0.8) Basophils # (Auto) 0.1 10 ^3/uL (0-0.2) Nucleated Red Blood Cells 0.0 % Sodium Level 141 mmol/L (136-145) Potassium Level 3.7 mmol/L (3.5-5.1) Chloride Level 109 mmol/L (98-107) Carbon Dioxide Level 24 mmol/L (20-31) Anion Gap 8 (5-15) Blood Urea Nitrogen 14 mg/dL (9-23) Creatinine 1.07 mg/dL (0.550-1.02) Glomerular Filtration Rate Calc 63 mL/min (>90) BUN/Creatinine Ratio 13.1 (10.0-20.0) Serum Glucose 131 mg/dL (74-106) Calcium Level 8.3 mg/dL (8.7-10.4) Other Laboratory Tests 11/05/24 00:47 Brief Hx & Hospital Course: 49-year-old female with past medical history of Renal stone unknown site, UTI came to ER with history of syncopal episode around 11:30 p.m. According to the patient she just completed brushing her teeth before returning to bed when she was walking on now we and suddenly felt lightheadedness, sweaty, tingling sensation in her whole-body, nausea, blurred vision after that she was sitting down on the floor and since then she is unable to recall anything. she reports that she called for her son and father when she sat on the floor and they told her that her eyes were open but she had lost consciousness. She did not hit her head on the floor. In 3-5 minutes she regained consciousness and was normal again unable to recognize everyone. she denies that she had any shaking movement of the body that she says her son told her about. Patient denies involuntary bowel/bladder control, chest pain, dyspnea, palpitation, tongue bite, no focal weakness any part of the body. Patient had donated plasma a few hours ago that evening and on inquiry she reports that she is on her periods and this is her 7th day. She reports that her periods have always been heavy but this time it is heavier than normal and she also recalls that the plasma donation felt quicker than normal S she has donated about a dozen times before. She had similar episode 3 months earlier there is no triggering factor noted previously. No recent onset of new medication or dietary changes, no missed meal before the incidence happened No history of recent any sick contact, injury, trauma, MVA. Patient currently denies any headache, vertigo, SOB, cough, constipation, dysuria, fever, abdominal pain. Brief history of hospitalization: Patient reported syncopal likely cardiogenic versus neurogenic versus orthostatic hypotension. Orthostatic vitals were ordered. A CT head without contrast showed no evidence of acute intracranial hemorrhage, extra-axial collection, mass effect, midline shift, herniation or hydrocephalus. Chest x-ray showed no acute cardiopulmonary disease. Her NIHSS score was 0. An EKG showed sinus rhythm, heart rate of 73, QTC 454. Urine analysis and urine toxicology was sent. An echocardiogram was ordered and a carotid Doppler was done. Carotid Doppler showed no hemodynamically significant stenosis on the right or left carotid system. We also sent out magnesium, HGB A1c, TSH, vitamin B12 levels. For patient's obesity(BMI 32.3), we counseled her regarding lifestyle modifications and sent out a lipid profile. Lab results show TSH of 11.1, free T4 0.78, total T3 1.39. We counseled the patient regarding her thyroid lab results and about starting levothyroxine which had to be done in an empty stomach. Patient's syncope was still under evaluation to find out the cost but patient decided to leave AMA. We counseled her regarding the risks and side effects the medication could have and the need of monitoring her in the hospital in patient after the dosage was given. She communicated understanding but wanted to leave. Patient encouraged to stay for further treatment/stabilization. Patient advised of the risks and benefits of leaving AMA. She communicated understanding and left AMA. Patient encouraged to return to the ER if symptoms do not improve or worsen. Operations or Procedures CHEST RADIOGRAPH IMPRESSION: No acute disease. EXAM: CT HEAD WITHOUT CONTRAST IMPRESSION: No acute intracranial abnormality. Radiation optimization: All CT scans at this facility use at least one of these dose optimization techniques: automated exposure control mA and/or kV adjustment per patient size (includes targeted exams where dose is matched to clinical indication) or iterative reconstruction. Carotid Duplex IMPRESSION: No hemodynamically significant stenosis noted in the right carotid system. No hemodynamically significant stenosis noted in the left carotid system. Reference: Radiology 2003; [id number] Condition at Discharge: Undetermined Final Diagnosis/Problems List # Syncope likely cardiogenic VS neurogenic VS orthostatic hypotension # OBESITY, BMI 32.3 # newly diagnosed hypothyroidism (tsh: 204, free t4 0.78, total t3 1.39) Discharge Disposition: AMA Discharge Instruct/Medications No Active Prescriptions or Reported Meds Discharge Statement: "Patient was advised to return to the ER or call 911 if any headaches, dizziness, shortness of breath, chest pain, abdominal pain, bleeding, fevers, or worsening of medical condition. Patient was counseled about treatment plan, medications, possible side effects, patientverbalized understanding. All questions were answered to the best of my ability. This discharge took greater then 30 minutes in planning, reviewing documentation, counseling the patient, and discussing with other team members." ASSESSMENT ASSESSMENT Assessment Date of Service: Nov 05, 2024 Billing Provider: CAIT CHAVEZ MD Common Visit Codes: 42850-XEW/OBS SAME DATE (HIGH) DULCE MARIA FISH RESIDENT Nov 05, 2024 15:23 CAIT CHAVEZ MD Nov 05, 2024 22:33
== END 2024-11-05 12:20 | disposition left against medical advice (07) | DRG 204 ==
LOC: EDBD 00:24 → ER 00:24 → OVERFLOW 03:23
PROVIDERS: ADMIT Internal Medicine; ATTEND Internal Medicine
DX: I95.1 Orthostatic hypotension (principal); E03.9 Hypothyroidism, unspecified; E66.9 Obesity, unspecified; Z53.29 Procedure and treatment not carried out because of patient's decision for other reasons; F17.200 Nicotine dependence, unspecified, uncomplicated; Z87.442 Personal history of urinary calculi; Z82.49 Family history of ischemic heart disease and other diseases of the circulatory system; Z68.32 Body mass index [BMI] 32.0-32.9, adult; Z79.899 Other long term (current) drug therapy
CPT/HCPCS: 36415; 70450; 71045; 80048; 80061; 80307; 81001; 82607; 83036; 83735; 83880; 84439; 84443; 84480; 84484; 85025; 93005; 93886; 96372; 99291; G0378

== ENCOUNTER 2024-12-01 23:09 | Emergency (ER) | payer MEDICAID ==
[~2024-12-01] VITALS: Ht 170.2 cm; Wt 104.0 kg
--- NOTE | 2024-12-02 01:26 | ED.PDOC ---
History of Present Illness(SKN HPI Comments 49-YEAR-OLD FEMALE PRESENTS TO THE ED POST FALL. PER PT FELL ONTO A ROCK, HAS AN APPROXIMATE 2CM LACERATION/PUNCTURE WOUND ON HER LEFT KNEE. DENIES NUMBNESS, WEAKNESS, FEVER, OR CHILLS. Chief Complaint: Laceration Time Seen by MD: 23:29 Primary Care Provider: none History of Present Illness: Nurses Notes, Medications, Allergies Allergies: Coded Allergies: NO KNOWN ALLERGIES (Unverified , 10/21/13) Home Meds No Active Prescriptions or Reported Meds Information Source: Patient Mode of Arrival: Ambulatory Past Medical History PAST MEDICAL HISTORY: Kidney Stones, UTI'S Surgical History: Denies all surgeries EMERGENCY ROOM TECH History: No Pertinent EMERGENCY ROOM TECH History Family History Family History: Reviewed,noncontributory to illness Social History Smoker: Non-Smoker Alcohol: Heavy Drugs: Denies Drug Use Lives In: Home All Other Systems: Reviewed and Negative (SEE HPI) Physical Exam General Appearance: No Apparent Distress, Normal HEENT: Pharynx Normal Neck: Full Range of Motion, Non-Tender Respiratory: Lungs Clear, No Respiratory Distress, Normal Breath Sounds Cardiovascular: No Murmur, Normal Peripheral Pulses, Regular Rate/Rhythm Breast Exam: Deferred Gastrointestinal: Non Tender, Soft Genitalia: Deferred Pelvic: Deferred Rectal: Deferred Extremities: Normal capillary refill, Normal range of motion, No pedal edema Musculoskeletal : Apperance: Normal Neurologic: Alert, No Motor Deficits, Normal Affect, Normal Mood, No Sensory Deficits Cerebellar Function: Normal Reflexes: Normal Skin: Dry, Lacerations (SUPERFICIAL ABRASION LEFT KNEE PATELLA BLEEDING CONTROLLED. NO OBVIOUS FOREIGN BODY. NEGATIVE BALLOTTEMENT. NEGATIVE RORO NEGATIVE DRAWER STRENGTH SENSORY MOTION INTACT POSITIVE PEDAL PULSE), Normal Color, Warm Lymphatic: No Adenopathy Was a procedure done? Was a procedure done?: No Differential Diagnosis (INTG) Differential Diagnosis: Abrasion, Cellulitis, Fracture, Hematoma, Laceration, Puncture Wound X-Ray, Labs, Meds, VS Vital Signs Date Time Temp Pulse Resp B/P (MAP) Pulse Ox O2 Delivery O2 Flow Rate FiO2 12/01/24 23:09 97.8 102 18 139/91 92 97.8 X-Ray, Labs, Meds, VS Comment WOUND CLEANSED AND DRESSED. FOLLOW UP WITH PCP IN 2-3 DAYS NECESSARY RETURN TO THE ER FOR UNCONTROLLED BLEEDING, OR SIGNS AND SYMPTOMS OF INFECTION. INCREASING PAIN. AGREES WITH DISCHARGE PLAN OF CARE INDICATES UNDERSTANDING. Time of 1ST Reevaluation: 23:45 Reevaluation 1ST: Unchanged Time of 2ND Reevaluation: 01:25 Reevaluation 2ND: Improved Patient Education/Counseling: Diagnosis, Treatment, Prognosis, Need For Follow Up Family Education/Counseling: Diagnosis, Treatment, Prognosis, Need For Follow Up SEPSIS Sepsis Screen Date sepsis recognized/suspect: Dec 01, 2024 Time Sepsis recognized/suspect: 2308 Recent Procedure: No On Antibiotic Therapy: No Respiratory Rate >20: No Heart Rate >90: Yes Temp<36 C (96.8 F) or >38.3 C: No SBP <90 or MAP <65 mmHG: No New Acute Mental Status Change: No Is the patient on CPAP, BIPAP,: No Vital Signs Date Time Temp Pulse Resp B/P (MAP) Pulse Ox O2 Delivery O2 Flow Rate FiO2 12/01/24 23:09 97.8 102 18 139/91 92 97.8 Departure 1 Departure Time of Disposition: :25 Impression: Primary Impression: Superficial laceration of knee Disposition: 01 HOME / SELF CARE / HOMELESS Condition: Stable e-Prescriptions No Active Prescriptions or Reported Meds Discharged With: Relative (Sibling) Critical Care Note Critical Care Time?: No Stability Stability form required: HENRY Byrd Dec 02, 2024 01:26
[2024-12-02 01:32] VITALS: BP 129/83; PULSE 85; RESP 20; TEMP 98.1; O2SAT 96
== END 2024-12-02 01:35 | disposition home or self-care (01) ==
LOC: ER 23:09
DX: S81.012A Laceration without foreign body, left knee, initial encounter (principal); S81.032A Puncture wound without foreign body, left knee, initial encounter; Z87.440 Personal history of urinary (tract) infections; Z87.442 Personal history of urinary calculi; W19.XXXA Unspecified fall, initial encounter; Y93.89 Activity, other specified; Y92.89 Other specified places as the place of occurrence of the external cause; Y99.8 Other external cause status